=== PATIENT | male | born 1980 | race Caucasian/White ===

== ENCOUNTER 2023-02-19 17:04 | Emergency (ER) | payer OTHER, SELFPAY ==
--- NOTE | ~2023-02-19 | CT_ITS ---
EXAMINATION: Head CT and cervical spine CT without contrast CLINICAL INFORMATION: Headache. Known bleed. Evaluate for new cervical spine fracture or abscess. COMPARISON: Soft tissue neck CT from earlier the same day TECHNIQUE: Axial images through the head and cervical spine without IV contrast. Sagittal and coronal reconstructions on the technologist workstation were performed. DLP 160 4 mgy/cm. This CT examination was performed using dose optimization techniques as appropriate, variously including the following: *Automated exposure control *Adjustment of mA and/or kV according to patient size (this includes techniques or standardized protocols for targeted exams where dose is matched to indication/reason for exam; i.e. extremities or head) *Use of iterative reconstruction technique FINDINGS: Head CT: There is a small amount of extra-axial hemorrhage adjacent to the right high posterior medial parietal lobe at the vertex. No other evidence of intra-axial or extra-axial hemorrhage. No evidence of an extra-axial collection. The ventricles and extra-axial CSF spaces are appropriate. Mathis-white matter differentiation is normal. No mass, mass effect or infarct. No skull fracture. Visualized paranasal sinuses, mastoid air cells and middle ears are clear. Cervical spine CT: Bone alignment is normal. No fracture or dislocation. Mild degenerative spondylosis at C5-C6. Prevertebral soft tissues are normal. CT/CT cervical spine wo IV con IMPRESSION: Head CT: Small amount of extra-axial subarachnoid hemorrhage adjacent to the right parietal lobe. Cervical spine CT: No fracture or dislocation. Mild degenerative changes at C5-C6. Findings will be communicated by the [place] work flow sofa inspector.
--- NOTE | ~2023-02-19 | CT_ITS ---
EXAMINATION: CT SOFT TISSUE NECK WITH CONTRAST CLINICAL INFORMATION: History of tongue ulceration complicated by infection, concern for retropharyngeal abscess COMPARISON: None. TECHNIQUE: Following the administration of 65 mL of Omnipaque 350 intravenous contrast, helical imaging was performed in the axial plane with generation of coronal and sagittal reformatted images. This CT examination was performed using dose optimization techniques as appropriate, variously including the following: *Automated exposure control. *Adjustment of mA and/or kV according to patient size (this includes techniques or standardized protocols for targeted exams where dose is matched to indication/reason for exam; i.e. extremities or head). *Use of iterative reconstruction technique. DLP: 1603.53 mGy-cm FINDINGS: There is a vertically oriented ulceration/defect along the lateral aspect of the right oral tongue with adjacent dissecting foci of air which extends to the dorsal aspect of tongue to the right of midline. There appears to be some hyperenhancement/hyperemia along the margins of the ulceration (image 59, series 14). There is a well marginated tubular fluid density collection oriented vertically within the anterior oral tongue with the inferior margin insinuating within the bilateral genioglossus muscles which measures 0.8 x 1.2 x 2.9 cm (AP by TR by CC), suspicious for abscess given the provided clinical history. There is no floor of mouth involvement. The bilateral lingual arteries opacify normally, however are splayed along the margins of the genioglossus muscles. No retropharyngeal abscess as clinically queried. There is asymmetric thickening and mucosal hyperenhancement of the right gingival buccal soft tissues.There is thickening and ill-defined margins along the right greater than left platysma muscles with infiltration of the submental region and right submandibular triangle with cellulitic changes involving the midline proximal infrahyoid neck and preepiglottic space. The oropharynx, hypopharynx and larynx are unremarkable and there is no airway narrowing. Nonspecific posttraumatic versus infectious infiltration within the right parasymphyseal perimandibular soft tissues with overlying skin thickening and radiopaque densities which may reflect foreign bodies or calcifications. The patient is edentulous. The fat planes of the skull base and soft tissues of the nasopharynx are unremarkable. Tiny retention cyst/polyp along the medial wall of the right maxillary sinus, otherwise the paranasal sinuses and mastoid air cells are well aerated. The temporomandibular joints are normal. The patient is largely edentulous with a single remaining posterior right mandibular molar tooth. The submandibular and parotid glands are normal. The thyroid gland is normal. No pathologic size criteria or morphologically suspicious cervical chain lymph nodes. The partially visualized lung apices are clear. Normal enhancement of the cervical vascular structures. Straightening of the cervical lordosis. Mild C5-C6 disc height loss and right paracentral disc osteophyte/protrusion this level contributing to at least mild spinal canal stenosis and possible mass effect along the ventral cord. Partially imaged intracranial findings discuss separately. CT/CT soft tissue neck w IV con IMPRESSION: Vertically oriented ulceration/defect along the lateral aspect of the right oral tongue extending to the dorsal aspect of tongue to the right of midline with marginal/mucosal hyperemia. Tubular fluid collection with subtle peripheral enhancement within the anterior oral time and insinuating between the bilateral genioglossus muscles inferiorly suspicious for abscess, measuring 0.8 x 1.2 x 2.9 cm (AP by TR by CC). No floor of mouth involvement. No retropharyngeal abscess. Cellulitic changes within the neck as above. Nonspecific posttraumatic versus infectious infiltration within the right parasymphyseal perimandibular soft tissues with overlying skin thickening and radiopaque densities which may reflect foreign bodies or calcifications.
--- NOTE | ~2023-02-19 | CT_ITS ---
EXAMINATION: Head CT and cervical spine CT without contrast CLINICAL INFORMATION: Headache. Known bleed. Evaluate for new cervical spine fracture or abscess. COMPARISON: Soft tissue neck CT from earlier the same day TECHNIQUE: Axial images through the head and cervical spine without IV contrast. Sagittal and coronal reconstructions on the technologist workstation were performed. DLP 160 4 mgy/cm. This CT examination was performed using dose optimization techniques as appropriate, variously including the following: *Automated exposure control *Adjustment of mA and/or kV according to patient size (this includes techniques or standardized protocols for targeted exams where dose is matched to indication/reason for exam; i.e. extremities or head) *Use of iterative reconstruction technique FINDINGS: Head CT: There is a small amount of extra-axial hemorrhage adjacent to the right high posterior medial parietal lobe at the vertex. No other evidence of intra-axial or extra-axial hemorrhage. No evidence of an extra-axial collection. The ventricles and extra-axial CSF spaces are appropriate. Mathis-white matter differentiation is normal. No mass, mass effect or infarct. No skull fracture. Visualized paranasal sinuses, mastoid air cells and middle ears are clear. Cervical spine CT: Bone alignment is normal. No fracture or dislocation. Mild degenerative spondylosis at C5-C6. Prevertebral soft tissues are normal. CT/CT head/brain wo IV con IMPRESSION: Head CT: Small amount of extra-axial subarachnoid hemorrhage adjacent to the right parietal lobe. Cervical spine CT: No fracture or dislocation. Mild degenerative changes at C5-C6. Findings will be communicated by the [place] work flow tram inspector.
[2023-02-19 17:35] VITALS: BP 141/89; PULSE 103; RESP 20; TEMP 36.4; O2SAT 96; BMI 28.0
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
[2023-02-19 18:31] LABS: Baso%MD 0.1 %; Eos%MD 1.6 %; Hematocrit 34.5 % (42.0-52.0); Hemoglobin 11.6 g/dl (14.0-18.0); IG%MD 0.5 %; Lymph%MD 22.1 %; Mean Corpuscular HGB Conc 33.6 g/dl (31.0-36.0); Mean Corpuscular Hemoglobin 28.2 pg (27.0-33.0); Mean Corpuscular Volume 83.7 fL (80.0-98.0); Mean Platelet Volume 11.5 fL (9.4-12.4); Mono%MD 8.6 %; Neut%MD 67.1 %; Platelet Count 192 X10*3/uL (160-400); Red Blood Count 4.12 X10*6/uL (4.60-5.80); Red Cell Distribution Width 12.8 % (11.0-16.0); White Blood Count 9.5 X10*3/uL (4.8-10.8)
[2023-02-19 18:48] LABS: Alanine Aminotransferase 39 U/L (0-40); Albumin Level 3.5 g/dL (3.5-5.0); Alkaline Phosphatase 70 U/L (39-117); Anion Gap 11 (12-20); Aspartate Amino Transferase 37 U/L (5-37); Bilirubin Direct 0.4 mg/dL (0.0-0.5); Bilirubin Total 0.8 mg/dL (0.0-1.0); Blood Urea Nitrogen 27 mg/dL (9-16); Calcium 8.3 mg/dL (8.4-10.2); Carbon Dioxide 29 mmol/L (22-29); Chloride 107 mmol/L (96-108); Creatinine Clr Calc Pharmacy 128.6; Estimated Glomerular Filt Rate > 60; Glucose Random 157 mg/dL (60-115); Lipase 22 U/L (8-78); Potassium 3.5 mmol/L (3.3-5.1); Sodium 143 mmol/L (135-145); Total Protein 5.8 g/dL (6.5-8.0)
[2023-02-19 18:58] LABS: Appearance Urine Clear; Color Urine Dark Yellow; Glucose Urine UA Negative (Negative); Leukocyte Esterase Urine Trace (Negative); Nitrite Urine Negative (Negative); Specific Gravity - Urine >= 1.030 (1.005-1.025); UMIC TRIGGER UACC YES; Urine Blood Negative (Negative); Urine Ketones Negative (Negative); Urine Protein 30 (1+) mg/dL (Neg-Trace)
[2023-02-19 19:03] LABS: Bacteria Urine None Seen (None Seen); Hyaline Casts Urine 0-2 /LPF (0-2); RBC Urine 0-2 /HPF (0-2); WBC Urine 0-5 /HPF (0-5)
[2023-02-19 19:06] LABS: Amphetamine Screen Urine Not Detected (Not Detect); Barbiturates, Urine POSITIVE (Not Detect); Benzodiazepines Screen Urine Not Detected (Not Detect); Cannabinoid Screen Urine POSITIVE (Not Detect); Cocaine Screen Urine POSITIVE (Not Detect); Fentanyl, urine POSITIVE (Not Detect); Opiate Screen Urine POSITIVE (Not Detect); Phencyclidine Screen Urine Not Detected (Not Detect)
[2023-02-19] MEDS: iohexoL 350 MG/ML 100 ML INFUS..BTL IV (19:19)
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
[2023-02-19 21:57] LABS: Band Neutrophils Percent 2 % (3-5); Eosinophils Absolute Manual 0.3 X10*3/uL (0.0-0.4); Eosinophils Percent Manual 3 % (0-4); Lymphocytes Absolute Manual 1.9 X10*3/uL (1.2-4.9); Lymphocytes Percent Manual 20 % (20-40); Monocytes Absolute Manual 0.4 X10*3/uL (0.1-1.2); Monocytes Percent Manual 4 % (2-11); Neutrophils Absolute Manual 6.9 X10*3/uL (2.0-8.3); Neutrophils Percent Manual 71 % (45-73)
[2023-02-19 21:58] LABS: RBC Morphology NOTED
[2023-02-19 21:59] LABS: Burr Cells 3+ (>5) /OIF; Large Platelet PRESENT; Microcytosis 1+ (5-14) /OIF; Platelet Estimate NORMAL (NORMAL); Platelet Morphology Comment NOTED
== END 2023-02-19 19:58 | disposition left against medical advice (07) ==
LOC: HO.ED 19:58
PROVIDERS: Physician Assistant; Emergency Provider Emergency Medicine
DX: K14.0 Glossitis (principal); R51.9 Headache, unspecified; F19.99 Other psychoactive substance use, unspecified with unspecified psychoactive substance-induced disorder
CPT/HCPCS: 36415; 70450; 70491; 72125; 80048; 80076; 80307; 81001; 83605; 83690; 85007; 85027; 87040; 99283; Q9967

== ENCOUNTER 2023-02-19 21:53 | Emergency (ER) | payer OTHER, SELFPAY ==
[2023-02-19 21:57] VITALS: BP 125/69; PULSE 76; RESP 18; TEMP 36; O2SAT 96; BMI 31.1
[2023-02-20 00:10] VITALS: BP 106/71; PULSE 86; RESP 16; TEMP 36.8; O2SAT 97
--- NOTE | 2023-02-20 00:11 | MHC.EDTECH ---
Vitals taken,patient is sitting on the side of the bed,awaiting IV placement.Call peter in reach
--- NOTE | 2023-02-20 00:13 | MHC.EDTECH ---
Call out to [facility] transfer line @ [phone] spoke to jose.
--- NOTE | 2023-02-20 00:36 | MHC.EDTECH ---
Room assignment [place] [id number] room 12 nurse to nurse [phone] accpeting
[2023-02-20] MEDS: Clindamycin Phosphate/D5W 600 MG/50 ML PIGGYBACK 100 MG IV (00:39)
--- NOTE | 2023-02-20 00:39 | ED.GENADULT ---
HPI - General Adult General Chief complaint: Skin/Abscess/Foreign Body Stated complaint: left ama earlier, back again for same reason Time Seen by Provider: 02/19/23 23:46 Source: patient Mode of arrival: ambulatory Limitations: no limitations History of Present Illness HPI narrative: 42-year-old male with history of IV drug use with the CT scan reading in early of tongue abscess return to the ED and willing to be transferred to [facility]. Patient not in any respiratory distress. Patient denies trouble breathing.patient denies drooling. Patient denies change in voice. Tongue abscess and known head bleed Related Data Allergies Allergy/AdvReac Type Severity Reaction Status Date / Time amoxicillin AdvReac Unknown Verified 02/19/23 17:45 Review of Systems Review of Systems: Tongue abscess. Known head bleed Yes all other systems are reviewed and are negative [facility] Social History Social History Advance Directives: No Advance Directives Information Provided: Yes Physical Exam ED Vital Signs: Vital Signs - 24 hr 02/19/23 21:57 02/20/23 00:10 02/20/23 00:41 Temperature 96.8 F 98.3 F Pulse Rate 76 86 Respiratory Rate 18 16 16 Blood Pressure 125/69 106/71 Pulse Oximetry 96 97 Oxygen Delivery Method Room Air Room Air BMI result Body Mass Index 31.1 Const General: cooperative, healthy appearing, comfortable, no acute distress, well developed, alert, awake and Physically active HENVT Other: Tongue infection. Patient speaking in full sentences. Negative for any drooling. Negative for any change in voice. Negative for any uvular swelling. Patient is stable Eyes General: appearance normal, both eyes and all related structures Chest Chest palpation & inspection: normal inspection of the chest and normal palpation of entire chest wall Resp Effort & Inspection: normal respiratory effort and able to speak in complete sentences Auscultation: clear to auscultation bilaterally Cardio Jugular venous distension: no JVD Heart sounds: S1 normal heart sound present and S2 normal heart sound present GI Inspection: Yes normal to inspection and No abdominal wall ecchymosis Palpation (GI): Soft to palpation, not firm, nontender, no guarding and not rigid General: No CVA tenderness and Yes no CVA tenderness Back/Spine/Pelvis Back: no CVA tenderness, No CVA tenderness and No back tenderness Skin General skin exam: no rashes or lesions noted and elasticity normal Extrem General: Yes normal to inspection and Yes full ROM Psych Appearance: grossly normal, well kempt and not disheveled Course Course Course Narrative: Patient return to the ED. Reevaluation(s) Reevaluation #1: Spoke with trauma surgeon from [facility] Dr. Gutierrez who accepted the case. Patient will be direct admit to the floor. Patient is stable. patient is not in any airway distress Time: 00:48 Medications Administered Discontinued Medications Generic Name Dose Route Start Last Admin Trade Name Freq PRN Reason Stop Dose Admin Sodium Chloride 1,000 mls @ 999 mls/hr 02/19/23 23:46 02/20/23 01:14 Ns IV 02/20/23 00:46 999 mls/hr .Q1H1M STA Administration Clindamycin Phosphate 600 mg in 50 mls @ 100 mls/hr 02/19/23 23:59 02/20/23 01:14 Cleocin IV 02/20/23 00:28 Infused ONCE ONE Infusion Morphine Sulfate 4 mg 02/20/23 00:04 02/20/23 00:41 Morphine Sulfate 4 Mg/Ml Cartridge IVPUSH 02/20/23 00:05 4 mg ONCE ONE Administration Protocol Medical Decision Making Medical Decision Making MDM Narrative: 42-year-old male with known head bleed return to the ED after sign out AMA with known tongue abscess from earlier CT scan. Patient not any respiratory distress. Patient accepted by [facility]. Differential Diagnosis Differential Diagnoses: The differential diagnosis associated with the presentation includes (Peritonsillar abscess, retropharyngeal abscess, cellulitis oral cavity, [place] angina) Admission/Observation Consideration of admission/observation: Escalation of care including admission/observation considered (Transferred to [facility]) Consult Healthcare Provider Management of the patient was discussed with: Coating Mixer Supervisor (Trauma Surgeon Dr. Gutierrez) Lab Data MDM Lab Attestation statement: I reviewed the patient's lab results. Labs: Lab Results 02/20/23 Range/Units 00:31 COVID-19 (RUBY) Negative (Negative) COVID-19 Clin Com See Note Radiology Impression Discussion of test interpretation with radiology: I have reviewed the radiologist's reading. Discharge Plan Discharge Clinical Impression: Abscess of tongue Patient Disposition: er [facility] Hospital Transfer Details: [facility] Interventions: Acute Care Transfer Worksheet (ED) Last Done: 02/20/23 01:35 Discharge Date/Time: 02/20/23 01:36 Print Language: Lao
[2023-02-20 00:41] VITALS: RESP 16
[2023-02-20] MEDS: Morphine Sulfate 4 MG/ML CARTRIDGE IVPUSH (00:41)
[2023-02-20 00:51] LABS: COVID-19 Test Negative (Negative); IDNOW Serial# BCCEAD1C
[2023-02-20] MEDS: 0.9 % Sodium Chloride 1,000 ML 999 ML IV (01:14)
--- NOTE | 2023-02-20 01:21 | PC.NURSE ---
Addendum entered by Paula Martell 02/20/23 01:33: RN to RN report given to Sharon MALDONADO at [facility], Pt ambulated to stretcher independently with steady gait. Pt transported via ambulance. Original Note: Pt A&Ox4, reports 10/10 tongue pain. Pt hard stick, multiple attempts made, provider at bedside with ultrasounds.
== END 2023-02-20 01:36 | disposition short-term general hospital (02) ==
PROVIDERS: Physician Assistant; Emergency Provider Emergency Medicine
DX: K14.0 Glossitis (principal); Z20.822 Contact with and (suspected) exposure to COVID-19; Z20.828 Contact with and (suspected) exposure to other viral communicable diseases; Z79.899 Other long term (current) drug therapy
CPT/HCPCS: 87635; 96361; 96374; 96375; 99285; J2270

== ENCOUNTER 2023-04-25 08:14 | Emergency (ER) | payer OTHER, SELFPAY ==
--- NOTE | ~2023-04-25 | CT_ITS ---
EXAMINATION: CT ABDOMEN AND PELVIS WITHOUT CONTRAST CLINICAL INFORMATION: Urinary retention. COMPARISON: None available. TECHNIQUE: Multidetector volumetric imaging was performed from the superior aspect of the liver through the pubic symphysis. Sagittal and coronal reformatted images were obtained on the technologist's workstation. This CT examination was performed using dose optimization techniques as appropriate, variously including the following: *Automated exposure control *Adjustment of mA and/or kV according to patient size (this includes techniques or standardized protocols for targeted exams where dose is matched to indication/reason for exam; i.e. extremities or head) *Use of iterative reconstruction technique DLP: 787 mGy-cm FINDINGS: LUNG BASES: There is bibasilar dependent atelectasis. The heart size is normal. LIVER, GALLBLADDER, AND BILIARY TREE: The liver is normal in size, shape, and attenuation. No focal hepatic lesion or biliary ductal dilatation is present. The gallbladder is unremarkable with no evidence of radiopaque gallstones, gallbladder wall thickening, or obvious pericholecystic inflammatory changes. PANCREAS: Unremarkable. SPLEEN: Unremarkable. ADRENAL GLANDS: The left adrenal gland is slightly prominent with 1 cm nodule axial image 28/3. The right adrenal gland is unremarkable. KIDNEYS AND URETERS: The kidneys are normal in size, shape, and attenuation. No hydronephrosis, hydroureter, or calculi seen. No perinephric stranding. BLADDER: The bladder is undistended and unremarkable.. GASTROINTESTINAL TRACT: There is scattered stool and gas seen throughout the colon without significant distention. There is nonspecific thickening of the rectum and distal sigmoid colon. The small bowel loops are normal caliber. There is appendicolith in a normal caliber appendix. ABDOMINAL WALL: There is small umbilical hernia containing fat. LYMPH NODES: Normal. VASCULAR: Unremarkable. PELVIC VISCERA: Unremarkable. OSSEOUS STRUCTURES: There are degenerative disc changes with ventral spondylosis L5-S1 disc level. No aggressive lytic or sclerotic process seen. CT/CT abdomen pelvis wo IV con IMPRESSION: 1. No acute intra-abdominal process seen. 2. Mild constipation. There is nonspecific mural thickening involving the rectum and the distal sigmoid colon. 3. No radiopaque urolith or hydroureteronephrosis. 4. The urinary bladder is nondistended. Fleischner guidelines were followed.
[2023-04-25 08:28] VITALS: BP 138/84; PULSE 83; O2SAT 99; BMI 29.5
--- NOTE | 2023-04-25 09:14 | ED_ITS ---
HPI - Male Genitourinary General Chief complaint: Urogenital-Male Stated complaint: UTI? Time Seen by Provider: 04/25/23 09:11 Source: patient Mode of arrival: ambulatory Limitations: no limitations History of Present Illness HPI Narrative: Patient is a 43 year old assigned male at with a history of opiate abuse presenting to the emergency department today with difficulty urinating and requesting detox placement. Patient states that over the last 48 hours he has had a harder time urinating. Patient states that he also just got out of detox and used last night, so he would like to go back to detox. Patient denies any dizziness, lightheadedness, abdominal pain, nausea, vomiting, fever, chills, blurry vision, double vision, loss of vision, chest pain, difficulty breathing, shortness of breath, back pain, night sweats, pain with urination, increased urinary frequency, increased urinary urgency, blood in his urine or stool, syncope or a near syncopal episode, recent trauma or falls, bowel incontinence, bladder incontinence, bowel retention, or any other complaints at this time. Onset (ago): day(s) Duration: constant Severity: mild Relieving factors: none Exacerbating factors: none Associated symptoms: Reports denies other symptoms Related Data Allergies Allergy/AdvReac Type Severity Reaction Status Date / Time amoxicillin AdvReac Unknown Verified 02/19/23 17:45 Review of Systems Constitutional: Constitutional: Reports no additional constitutional complaints, Denies chills, Denies fever(s) and Denies night sweats Eyes: Eyes: Reports no additional eye complaints, Denies blurry vision, Denies change in vision, Denies diplopia, Denies eye discharge, Denies loss of vision and Denies eye pain ENT: Denies dizziness Cardiovascular: Cardiovascular: Reports no additional cardiovascular complaints, Denies chest pain, Denies lightheadedness, Denies Loss of Consciousness and Denies dyspnea Respiratory: Respiratory: Reports no additional respiratory complaints and Denies dyspnea Gastrointestinal: Gastrointestinal: Reports no additional gastrointestinal complaints, Denies abdominal pain, Denies melena, Denies hematochezia, Denies change in bowel habits and Denies change in stool character Genitourinary: Genitourinary: Reports no additional male genitourinary complaints, Denies hematuria, Reports oliguria, Denies difficulty urinating, Denies dysuria, Denies urinary frequency, Denies urinary hesitancy, Denies urinary incontinence and Denies urinary urgency Musculoskeletal: Musculoskeletal: Reports no additional musculoskeletal complaints, Denies numbness and Denies tingling Neurologic: Denies dizziness, Denies loss of vision, Denies numbness and Denies tingling Psychiatric: Psychiatric: Reports no additional psychiatric complaints Endocrine: Endocrine: Reports no additional endocrine complaints Hematologic/Lymphatic: Hematologic/Lymphatic: Reports no additional hematologic/lymphatic complaints Allergic/Immunologic: Allergic/Immunologic: Reports no additional allergic/immunologic complaints PMFSH Past Medical History Attestation statement: The following information was validated with the patient. Source: old records reviewed and nursing notes reviewed Social History Social History Advance Directives: No Advance Directives Information Provided: No Physical Exam Vital Signs: Vital Signs: Last Vital Signs Temp 98.4 F 04/25/23 13:20 Pulse 63 04/25/23 13:20 Resp 14 04/25/23 13:20 BP 112/74 04/25/23 13:20 Pulse Ox 98 04/25/23 13:20 O2 Del Method Room Air 04/25/23 13:20 BMI result Body Mass Index 29.5 Const: General: cooperative, no acute distress, alert and awake Nutritional Appearance: well nourished Orientation/consciousness: patient oriented x3 Limitations: no limitations HEENT: Head: Yes normal to inspection and Yes atraumatic Ears: hearing grossly normal bilaterally and external ears normal General nose exam: Normal external nose present, no nasal discharge noted and no epistaxis Face and sinus: Yes normal facial exam, No abrasion and No laceration Mouth: Normal oral and palatal mucosa present, no drooling and no muffled voice Eyes: General: appearance normal, both eyes and all related structures Periorbital: periorbital findings normal Eyelids: Yes eyelids normal Conjunctivae: conjunctivae normal Pupils: Equal, round and reactive pupils present EOM: EOMs intact bilaterally Neck: Neck: Yes normal visual inspection, Yes full ROM and Yes no lymphadenopathy Chest: Chest palpation & inspection: normal inspection of the chest Resp: Effort & Inspection: normal respiratory effort and able to speak in complete sentences Auscultation: clear to auscultation bilaterally Cardio: Rate: regular rate Rhythm: regular rhythm GI: Inspection: Yes normal to inspection Palpation (GI): Soft to palpation, not firm, nontender and no guarding Neuro: General: patient oriented x3 and moves all extremities Cranial nerves: Yes Equal, round and reactive pupils present Cognition (Neuro): normal cognition Motor exam (neuro): 5/5 motor strength present throughout Sensory Exam: Normal double simultaneous stimulation for sensation Coordination: [id number] test normal Extrem: General: Yes normal to inspection, Yes full ROM and Yes capillary refill normal Psych: Appearance: grossly normal Mental Status: mental status grossly normal Affect: normal affect Attitude: cooperative Thought process: Normal thought process present Thought content: Normal thought content present Insight: Good insight present (Psych) Medications Administered Discontinued Medications Generic Name Dose Route Start Last Admin Trade Name Freq PRN Reason Stop Dose Admin Potassium Chloride 10 meq in 100 mls @ 100 mls/hr 04/25/23 11:00 04/25/23 14:28 Potassium Chloride/H20 IV 04/25/23 12:59 Infused Q1H CARMEL Infusion Sodium Chloride 1,000 mls @ 999 mls/hr 04/25/23 14:15 04/25/23 14:28 Ns IV 04/25/23 15:15 999 mls/hr .Q1H1M CARMEL Administration Potassium Chloride 20 meq 04/25/23 10:52 04/25/23 11:17 Potassium Chloride Er 20 Meq Tab.Er.Prt PO 04/25/23 10:53 20 meq ONCE ONE Administration Medical Decision Making Medical Decision Making [facility] Narrative: Patient is a 43 year old assigned male at with a history of opiate abuse presenting to the emergency department today with decreased urination and requ esting detox. Patient's physical exam was unremarkable. Patient's blood work showed hypokalemia of 2.8 but was otherwise grossly normal. Patient's urine showed no acute process. Patient's EKG was unremarkable. Patient's abdomen/pelvis CT showed no acute process. Patient's bladder scan showed no evid ence of urinary retention. Patient met with the recovery team who was able to get him a ride back to [place] where he has resources for detox arrnaged. I explained my physical exam findings as well as all test results to the patient. I answered all questions asked by the patient. Patient received IV potassium, PO potassium, and IV fluids which he stated helped his symptoms significantly. I stressed the importance of the patient taking his medication as prescribed. I stressed the importance of the patient following up with his primary care provider. I stressed the importance of the patient returning to the emergency department immediately if his symptoms were to worsen or if he were to develop any dizziness, shortness of breath, difficulty breathing, chest pain, blurry vision, loss of vision, nausea, vomiting, abdominal pain, fever, chills, back pain, or any other complaints. Patient verbalized agreement and understanding with this treatment plan and discharge. Differential Diagnosis Differential Diagnoses: The differential diagnosis associated with the presentation includes Opiate abuse Opiate use Hypokalemia Dehydration Urinary retention UTI Admission/Observation Consideration of admission/observation: Escalation of care including admission/observation considered Patient would have been admitted to the hospital had his work up had any findings where hospital admission was appropriate and his clinical presentation warranted hospital admission. Consult Healthcare Provider Management of the patient was discussed with: Behavioral Health Provider (spoke with recovery team as noted in the MDM portion of this note.) Lab Data [facility] Lab Attestation statement: I reviewed the patient's lab results. My interpretation of these labs is in the MDM portion of this chart. 04/25/23 10:24 04/25/23 10:24 Labs: Lab Results 04/25/23 04/25/23 04/25/23 Range/Units 10:24 10:24 14:10 WBC 6.3 (4.8-10.8) X10*3/uL RBC 3.93 L (4.60-5.80) X10*6/uL Hgb 11.3 L (14.0-18.0) g/dl Hct 33.2 L (42.0-52.0) % MCV 84.5 (80.0-98.0) fL MCH 28.8 (27.0-33.0) pg MCHC 34.0 (31.0-36.0) g/dl RDW 13.2 (11.0-16.0) % Plt Count 109 L D (160-400) X10*3/uL MPV 11.5 (9.4-12.4) fL Immature Gran % (Auto) 0.2 (0.0-0.4) % Neut % (Auto) 57.0 (45-73) % Lymph % (Auto) 29.9 (20-40) % Giles % (Auto) 9.9 (2-11) % Eos % (Auto) 2.4 (0-4) % Baso % (Auto) 0.6 (0-2) % Lymph # (Auto) 1.9 (1.2-4.9) X10*3/uL Giles # (Auto) 0.6 (0.1-1.2) X10*3/uL Eos # (Auto) 0.2 (0.0-0.4) X10*3/uL Baso # (Auto) 0.0 (0.0-0.2) X10*3/uL Abs Immat Gran (auto) 0.01 (0.00-0.03) X10*3/uL Absolute Neuts (auto) 3.6 (2.0-8.3) x10*3/uL Absolute Nucleated RBC 0.000 (0.0-0.012) X10*3/uL Nucleated RBC % (auto) 0.0 (0.0-0.2) /100WBC Sodium 140 (135-145) mmol/L Potassium 2.8 L (3.3-5.1) mmol/L Chloride 105 (96-108) mmol/L Carbon Dioxide 28 (22-29) mmol/L Anion Gap 10 L (12-20) BUN 12 (9-16) mg/dL Creatinine 0.77 (0.5-1.4) mg/dL Estim Creat Clear Calc 140.5 Estimated GFR > 60 Random Glucose 122 H (60-115) mg/dL Calcium 8.5 (8.4-10.2) mg/dL Total Bilirubin 0.8 (0.0-1.0) mg/dL AST 37 (5-37) U/L ALT 34 (0-40) U/L Alkaline Phosphatase 78 (39-117) U/L Total Protein 6.0 L (6.5-8.0) g/dL Albumin 3.5 (3.5-5.0) g/dL Urine Color Yellow Urine Appearance Clear Urine pH 6.5 (5.0-9.0) Ur Specific [place] 1.015 (1.005-1.025) Urine Protein Trace (Neg-Trace) mg/dL Urine Glucose (UA) Negative (Negative) mg/dL Urine Ketones Negative (Negative) mg/dL Urine Blood Negative (Negative) Urine Nitrite Negative (Negative) Ur Leukocyte Esterase Small (1+) H (Negative) Urine RBC 0-2 (0-2) /HPF Urine WBC 6-10 (0-5) /HPF Ur Squamous Epith Cells 0-2 (0-2) /HPF Urine Bacteria None Seen (None Seen) Hyaline Casts 0-2 (0-2) /LPF Urine Opiates Screen (Not Detect) Urine Fentanyl Screen (Not Detect) Ur Barbiturates Screen (Not Detect) Ur Phencyclidine Scrn (Not Detect) Ur Amphetamines Screen (Not Detect) U Benzodiazepines Scrn (Not Detect) Urine Cocaine Screen (Not Detect) U Marijuana (THC) Screen (Not Detect) 04/25/23 Range/Units 14:10 WBC (4.8-10.8) X10*3/uL RBC (4.60-5.80) X10*6/uL Hgb (14.0-18.0) g/dl Hct (42.0-52.0) % MCV (80.0-98.0) fL MCH (27.0-33.0) pg MCHC (31.0-36.0) g/dl RDW (11.0-16.0) % Plt Count (160-400) X10*3/uL MPV (9.4-12.4) fL Immature Gran % (Auto) (0.0-0.4) % Neut % (Auto) (45-73) % Lymph % (Auto) (20-40) % Giles % (Auto) (2-11) % Eos % (Auto) (0-4) % Baso % (Auto) (0-2) % Lymph # (Auto) (1.2-4.9) X10*3/uL Giles # (Auto) (0.1-1.2) X10*3/uL Eos # (Auto) (0.0-0.4) X10*3/uL Baso # (Auto) (0.0-0.2) X10*3/uL Abs Immat Gran (auto) (0.00-0.03) X10*3/uL Absolute Neuts (auto) (2.0-8.3) x10*3/uL Absolute Nucleated RBC (0.0-0.012) X10*3/uL Nucleated RBC % (auto) (0.0-0.2) /100WBC Sodium (135-145) mmol/L Potassium (3.3-5.1) mmol/L Chloride (96-108) mmol/L Carbon Dioxide (22-29) mmol/L Anion Gap (12-20) BUN (9-16) mg/dL Creatinine (0.5-1.4) mg/dL Estim Creat Clear Calc Estimated GFR Random Glucose (60-115) mg/dL Calcium (8.4-10.2) mg/dL Total Bilirubin (0.0-1.0) mg/dL AST (5-37) U/L ALT (0-40) U/L Alkaline Phosphatase (39-117) U/L Total Protein (6.5-8.0) g/dL Albumin (3.5-5.0) g/dL Urine Color Urine Appearance Urine pH (5.0-9.0) Ur Specific [place] (1.005-1.025) Urine Protein (Neg-Trace) mg/dL Urine Glucose (UA) (Negative) mg/dL Urine Ketones (Negative) mg/dL Urine Blood (Negative) Urine Nitrite (Negative) Ur Leukocyte Esterase (Negative) Urine RBC (0-2) /HPF Urine WBC (0-5) /HPF Ur Squamous Epith Cells (0-2) /HPF Urine Bacteria (None Seen) Hyaline Casts (0-2) /LPF Urine Opiates Screen Not Detected (Not Detect) Urine Fentanyl Screen POSITIVE H (Not Detect) Ur Barbiturates Screen Not Detected (Not Detect) Ur Phencyclidine Scrn Not Detected (Not Detect) Ur Amphetamines Screen Not Detected (Not Detect) U Benzodiazepines Scrn Not Detected (Not Detect) Urine Cocaine Screen POSITIVE H (Not Detect) U Marijuana (THC) Screen POSITIVE H (Not Detect) Independent Interpretation I performed an independent interpretation of an: CT Scan Interpretation: My interpretation is in agreement with the radiologist's impression of this imaging study. EXAMINATION: CT ABDOMEN AND PELVIS WITHOUT CONTRAST? CLINICAL INFORMATION: Urinary retention.? COMPARISON: None available. TECHNIQUE: Multidetector volumetric imaging was performed from the superior aspect of the liver through the pubic symphysis. Sagittal and coronal reformatted images were obtained on the technologist's workstation.? This CT examination was performed using dose optimization techniques as appropriate, variously including the following: *Automated exposure control *Adjustment of mA and/or kV according to patient size (this includes techniques or standardized protocols for targeted exams where dose is matched to indication/reason for exam; i.e. extremities or head) *Use of iterative reconstruction technique DLP: 787 mGy-cm FINDINGS: LUNG BASES: There is bibasilar dependent atelectasis. The heart size is normal.? LIVER, GALLBLADDER, AND BILIARY TREE: The liver is normal in size, shape, and attenuation. No focal hepatic lesion or biliary ductal dilatation is present. The gallbladder is unremarkable with no evidence of radiopaque gallstones, gallbladder wall thickening, or obvious pericholecystic inflammatory changes.? PANCREAS: Unremarkable.? SPLEEN: Unremarkable.? ADRENAL GLANDS: The left adrenal gland is slightly prominent with 1 cm nodule axial image 28/3. The right adrenal gland is unremarkable.? KIDNEYS AND URETERS: The kidneys are normal in size, shape, and attenuation. No hydronephrosis, hydroureter, or calculi seen. No perinephric stranding. ? BLADDER: The bladder is undistended and unremarkable..? GASTROINTESTINAL TRACT: There is scattered stool and gas seen throughout the colon without significant distention. There is nonspecific thickening of the rectum and distal sigmoid colon. The small bowel loops are normal caliber. There is appendicolith in a normal caliber appendix.? ABDOMINAL WALL: There is small umbilical hernia containing fat.? LYMPH NODES: Normal. VASCULAR: Unremarkable. PELVIC VISCERA: Unremarkable.? OSSEOUS STRUCTURES: There are degenerative disc changes with ventral spondylosis L5-S1 disc level. No aggressive lytic or sclerotic process seen.? CT/CT abdomen pelvis wo IV con IMPRESSION: 1.? No acute intra-abdominal process seen. 2.? Mild constipation. There is nonspecific mural thickening involving the rectum and the distal sigmoid colon. 3. No radiopaque urolith or hydroureteronephrosis. 4. The urinary bladder is nondistended. ? Fleischner guidelines were followed. Dictated By: Rajendra Bradley MD Signed By: Electronically signed by Rajendra Bradley MD 04/25/23 2097 Radiology Impression Discussion of test interpretation with radiology: I have reviewed the radiologist's reading. Chronic Conditions Patient?s care impacted by: Other (opiate use) Discharge Plan Discharge Clinical Impression: Hypokalemia, Opioid abuse Patient Disposition: Home, Self-Care Instructions: Potassium Content of Foods List (ED), Hypokalemia (ED), Opioid Use Disorder (ED) Additional Instructions: Follow up with your primary care provider. Return to the emergency department immediately if your symptoms worsen or if you develop any dizziness, shortness of breath, difficulty breathing, chest pain, blurry vision, loss of vision, nausea, vomiting, abdominal pain, fever, chills, back pain, or any other complaints. Referrals: [facility] – [place] Family Medicine [Provider Group] (Call to establish and follow up with a primary care provider. If you already have a primary care provider, please follow up with them.) [facility] – [place] Primary Care, Mick [Provider Group] (Call to establish and follow up with a primary care provider. If you already have a primary care provider, please follow up with them.) [facility] – [place] Primary Care,Sergei [Provider Group] (Call to establish and follow up with a primary care provider. If you already have a primary care provider, please follow up with them.) Print Language: Micronesian
[2023-04-25 10:29] LABS: MANUAL DIFF FLAG NO
[2023-04-25 10:37] LABS: Basophils Percent Auto 0.6 % (0-2); Eosinophils Absolute Auto 0.2 X10*3/uL (0.0-0.4); Eosinophils Percent Auto 2.4 % (0-4); Hematocrit 33.2 % (42.0-52.0); Hemoglobin 11.3 g/dl (14.0-18.0); Imm Gran Abs Auto 0.01 X10*3/uL (0.00-0.03); Imm Gran Pct Auto 0.2 % (0.0-0.4); Lymphocytes Absolute Auto 1.9 X10*3/uL (1.2-4.9); Lymphocytes Percent Auto 29.9 % (20-40); Mean Corpuscular Hemoglobin 28.8 pg (27.0-33.0); Mean Corpuscular Volume 84.5 fL (80.0-98.0); Mean Platelet Volume 11.5 fL (9.4-12.4); Monocytes Absolute Auto 0.6 X10*3/uL (0.1-1.2); Monocytes Percent Auto 9.9 % (2-11); Neutrophils Absolute Auto 3.6 x10*3/uL (2.0-8.3); Platelet Count 109 X10*3/uL (160-400); Red Blood Count 3.93 X10*6/uL (4.60-5.80); Red Cell Distribution Width 13.2 % (11.0-16.0); White Blood Count 6.3 X10*3/uL (4.8-10.8)
[2023-04-25 10:51] LABS: Alanine Aminotransferase 34 U/L (0-40); Albumin Level 3.5 g/dL (3.5-5.0); Alkaline Phosphatase 78 U/L (39-117); Anion Gap 10 (12-20); Aspartate Amino Transferase 37 U/L (5-37); Bilirubin Total 0.8 mg/dL (0.0-1.0); Blood Urea Nitrogen 12 mg/dL (9-16); Calcium 8.5 mg/dL (8.4-10.2); Carbon Dioxide 28 mmol/L (22-29); Chloride 105 mmol/L (96-108); Creatinine Clr Calc Pharmacy 140.5; Estimated Glomerular Filt Rate > 60; Glucose Random 122 mg/dL (60-115); Potassium 2.8 mmol/L (3.3-5.1); Sodium 140 mmol/L (135-145)
--- NOTE | 2023-04-25 10:52 | ECG_ITS ---
Test Reason : hypokalemia Blood Pressure : / mmHG Vent. Rate : 050 BPM Atrial Rate : 050 BPM P-R Int : 158 ms QRS Dur : 096 ms QT Int : 490 ms P-R-T Axes : 047 002 006 degrees QTc Int : 446 ms Sinus bradycardia Otherwise normal ECG No previous ECGs available Referred By: Carlee Powell Electronically Signed By:KERRIE HARVEY
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
[2023-04-25] MEDS: Potassium Chloride ER 20 MEQ TAB.ER.PRT PO (11:17)
[2023-04-25 11:19] VITALS: BP 118/73; PULSE 71; RESP 14; TEMP 36.6; O2SAT 96
[2023-04-25] MEDS: Potassium Chloride/H20 10 MEQ/100 ML PIGGYBACK 100 MEQ IV ×2 (11:53→13:13)
--- NOTE | 2023-04-25 12:06 | MHC.RECOVSUP ---
Addendum entered by Danis Swenson 04/25/23 15:20: Pt informs he is going to go back to his sisters house out in the [place] area. Original Note: Pt informed he does not qualify for ATS at this time since he has only used 1 time. Pt advised to come to [facility] to continue his Suboxone treatment, pt informs he might go to [facility] as they will send him back to [place]. Pt has no other questions or concerns at this time, provider aware.
[2023-04-25 13:20] VITALS: BP 112/74; PULSE 63; RESP 14; TEMP 36.9; O2SAT 98
[2023-04-25 14:25] LABS: Appearance Urine Clear; Color Urine Yellow; Glucose Urine UA Negative (Negative); Leukocyte Esterase Urine Small (1+) (Negative); Nitrite Urine Negative (Negative); PH 6.5 (5.0-9.0); Specific Gravity - Urine 1.015 (1.005-1.025); UMIC TRIGGER UACC YES; Urine Blood Negative (Negative); Urine Ketones Negative (Negative); Urine Protein Trace mg/dL (Neg-Trace)
[2023-04-25] MEDS: 0.9 % Sodium Chloride 1,000 ML 999 ML IV (14:28)
[2023-04-25 14:34] LABS: Amphetamine Screen Urine Not Detected (Not Detect); Barbiturates, Urine Not Detected (Not Detect); Benzodiazepines Screen Urine Not Detected (Not Detect); Cannabinoid Screen Urine POSITIVE (Not Detect); Cocaine Screen Urine POSITIVE (Not Detect); Fentanyl, urine POSITIVE (Not Detect); Opiate Screen Urine Not Detected (Not Detect); Phencyclidine Screen Urine Not Detected (Not Detect)
[2023-04-25 14:40] LABS: Bacteria Urine None Seen (None Seen); Hyaline Casts Urine 0-2 /LPF (0-2); RBC Urine 0-2 /HPF (0-2); Squamous Epithelial Cell Urine 0-2 /HPF (0-2); UACC Culture Trigger YES
--- NOTE | 2023-04-25 16:33 | PC.NURSE ---
pt left without take home supply of narcan
== END 2023-04-25 16:30 | disposition home or self-care (01) ==
PROVIDERS: Physician Assistant Medical; Emergency Provider Emergency Medicine
DX: E87.6 Hypokalemia (principal); F11.20 Opioid dependence, uncomplicated; R33.9 Retention of urine, unspecified
CPT/HCPCS: 36415; 51798; 74176; 80053; 80307; 81001; 85025; 87086; 93005; 96365; 96366; 99284

== ENCOUNTER 2023-05-16 18:43 | Emergency (ER) | payer OTHER, SELFPAY ==
[2023-05-16 20:50] VITALS: BP 132/102; PULSE 118; RESP 18; TEMP 36.7; O2SAT 98; BMI 32.5
[2023-05-16] MEDS: Acetaminophen 325 MG TABLET 650 MG PO (23:14)
[2023-05-17 01:44] VITALS: BP 125/84; PULSE 108; RESP 18; TEMP 36.7; O2SAT 98
--- NOTE | 2023-05-17 03:23 | ED.GENADULT ---
HPI - General Adult General Chief complaint: General Medical Stated complaint: looking for medication Time Seen by Provider: 05/17/23 02:36 Source: patient Mode of arrival: ambulatory Limitations: no limitations History of Present Illness HPI narrative: recently arrested and brought to [facility] [place] patient is not from here. He is missing his medications clonidine and suboxone Onset (ago): hour(s) Related Data Home Medications Medication Instructions Recorded Confirmed buprenorphine 8 mg-naloxone 2 mg 10 mg sublingual DAILY 05/16/23 05/16/23 sublingual film (Suboxone) Allergies Allergy/AdvReac Type Severity Reaction Status Date / Time amoxicillin AdvReac Unknown Verified 05/16/23 20:45 Review of Systems Review of Systems: Yes all other systems are reviewed and are negative [facility] Social History Social History Advance Directives: No Advance Directives Information Provided: No Physical Exam ED Vital Signs: Vital Signs - 24 hr 05/16/23 20:50 05/17/23 01:44 Temperature 98.0 F 98.0 F Pulse Rate 118 H 108 H Respiratory Rate 18 18 Blood Pressure 132/102 H 125/84 Pulse Oximetry 98 98 Oxygen Delivery Method Room Air Room Air BMI result Body Mass Index 32.5 Const General: healthy appearing Nutritional Appearance: average body habitus Orientation/consciousness: oriented to person and patient oriented x3 Limitations: no limitations HENMT Head: Yes normal to inspection Ears: external ears normal General nose exam: Normal external nose present Mouth: Normal oral and palatal mucosa present and oropharynx normal Throat: Yes posterior oropharynx normal Eyes General: appearance normal, both eyes and all related structures Neck Neck: Yes normal visual inspection Chest Chest palpation & inspection: normal inspection of the chest Resp Auscultation: clear to auscultation bilaterally Cardio Jugular venous distension: no JVD Rate: regular rate Rhythm: regular rhythm Heart sounds: S1 normal heart sound present and S2 normal heart sound present GI Inspection: Yes normal to inspection Palpation (GI): Soft to palpation, nontender and No hepatosplenomegaly present Auscultation: normal bowel sounds General: Yes no CVA tenderness Back/Spine/Pelvis Back: no CVA tenderness Skin General skin exam: no rashes or lesions noted Neuro General: oriented to person and patient oriented x3 Cranial nerves: Yes CN's II-XII intact bilaterally Motor exam (neuro): 5/5 motor strength present throughout Extrem General: Yes normal to inspection Psych Appearance: grossly normal Course Reevaluation(s) Reevaluation #1: patient awaiting CARE team for help Time: 07:29 Medications Administered Discontinued Medications Generic Name Dose Route Start Last Admin Trade Name Elina PRN Reason Stop Dose Admin Acetaminophen 650 mg 05/16/23 23:00 05/16/23 23:14 Acetaminophen 325 Mg Tablet PO 05/16/23 23:01 650 mg ONCE ONE Administration Clonidine HCl 0.1 mg 05/17/23 03:26 05/17/23 04:07 Clonidine Hcl 0.1 Mg Tablet PO 05/17/23 03:27 0.1 mg ONCE ONE Administration Protocol Methadone HCl 10 mg 05/17/23 03:26 05/17/23 06:27 Methadone Hcl 10 Mg Tablet PO 05/17/23 03:27 Not Given ONCE ONE Methadone HCl 10 mg 05/17/23 06:30 05/17/23 06:23 Methadone Hcl 20 Mg/2 Ml Oral.Conc PO 05/17/23 06:31 10 mg ONCE ONE Administration Medical Decision Making Differential Diagnosis Differential Diagnoses: The differential diagnosis associated with the presentation includes (polysubstance abuse, withdrawal) Consult Healthcare Provider patient to be seen by care team Tests considered The following testing was considered but not selected: considered getting blood but patient not acutely ill at this time Chronic Conditions Patient?s care impacted by: Other (substance abuse) Social Determinants Patient?s care significantly limited by Social Determinants of Health including: Alcoholism and drug addiction in family Discharge Plan Discharge Clinical Impression: Polysubstance (including opioids) dependence with physiological dependence Patient Disposition: Still a Patient Prescriptions: No Action buprenorphine-naloxone [Suboxone] 8-2 mg film 10 mg sublingual DAILY
[2023-05-17] MEDS: cloNIDine HCL 0.1 MG TABLET PO (04:07)
[2023-05-17] MEDS: methADONE HCl 20 MG/2 ML ORAL.CONC 10 MG PO (06:23)
--- NOTE | 2023-05-17 06:27 | PC.NURSE ---
pt medicated with oral methadone. tolerated well
[2023-05-17 08:00] VITALS: BP 132/76; PULSE 90; RESP 18; TEMP 37.1; O2SAT 95
--- NOTE | 2023-05-17 09:11 | PC.NURSE ---
pt making calls this morning, got himself back into his old recovery program [facility] - d/c with last dose letter.
== END 2023-05-17 09:52 | disposition home or self-care (01) ==
PROVIDERS: Emergency Provider Emergency Medicine
DX: F19.288 Other psychoactive substance dependence with other psychoactive substance-induced disorder (principal); F11.20 Opioid dependence, uncomplicated
CPT/HCPCS: 99283